=== PATIENT | male | born 1985 | race Caucasian/White ===

== ENCOUNTER 2024-09-26 09:35 | Emergency (ER) | payer SELFPAY ==
[2024-09-26 09:38] VITALS: BP 129/91; PULSE 94; TEMP 36.7; O2SAT 98; BMI 21.2
--- NOTE | 2024-09-26 09:42 | ECG_ITS ---
[facility] Test Date: 2024-09-26 Pat Name: NORMAN STARR Department: Room: - Gender: Male Cardiopulmonary Technologist: : [id number] Requested By: [id number] Order Number: [id number] Reading MD: YAZAN GUTIERREZ M.D. Measurements Intervals [place] Rate: 91 P: 90 CT: 124 QRS: 88 QRSD: 94 T: 83 QT: 370 QTc: 419 Interpretive Statements 1100 Sinus rhythm RSR' IN V1 OR V2, PROBABLY NORMAL VARIANT 9110 normal ECG Compared to ECG 09/17/2021 15:07:47 Sinus arrhythmia no longer present Electronically Signed On 09-27-2024 7:34:50 EDT by YAZAN GUTIERREZ M.D.
--- NOTE | 2024-09-26 09:43 | ED.MEDCLEAR1 ---
HPI - Medical Clearance General Chief complaint: Medical Clearance Stated complaint: SUICIDAL IDEATION, WELLNESS CHECK Time Seen by Provider: 09/26/24 09:42 Source: patient Mode of arrival: law enforcement History of Present Illness HPI Narrative: Patient is a 39-year-old male who is presenting to the ER today with chief complaint of psych clearance. Patient is making suicidal comments about not being here anymore, hanging himself, wanting to kill himself. Patient was talking on the phone to another individual at a gas station in [place]. Please officer brought patient in. Patient has been cooperative. Patient admits to doing methamphetamines, patient states he last use approximately 3 days ago to the police. Patient says that he has a history of bipolar, schizophrenia, he takes no medication. Patient denies taking any medication. Patient does admit to smoking methamphetamines. Patient said he lasted it 4 to 5 days ago to myself. Patient says he uses no cocaine use or any other use. Patient denies any type was drinks approximately 6-12 twisted teas a day. Patient smokes 1-1.5 packs of cigarettes a day. No other illicit drug use besides methamphetamines. Patient has no cardiac or lung history. Patient says he has been admitted to [facility] many years [facility], patient cannot recall why. Patient has no headache. Patient has multiple lomas on his forearms, patient states that he does not inject drugs, does not pop, he only smokes meth. Patient says that his family's family dog was attacking him of those lomas are bite lomas or scratches from a dog. Patient denies injecting IV drugs. Patient has no history of heart or cardiac disease. Patient currently has no abdominal pain nausea or vomiting. No urinary complaints. No bowel or bladder changes. I did ask patient if he is hallucinating recently was seeing or hearing things. Patient said yes, but he cannot give me any type of specifics what he was hearing or seeing, patient then told me he has bipolar and schizophrenia and that is sometimes normal for him. He is not compliant with medication. All systems are negative except as noted/marked. All systems reviewed and otherwise negative. Nurses note and vital signs reviewed and patient is not hypoxic. General: The patient appears well and in no apparent distress. Patient is resting comfortably on cart. Patient is not toxic, lethargic, or listless. Poor hygiene, patient smells of body odor Skin: Warm, dry, no pallor noted. There is no rash noted. No petechiae, purpura. Patient has multiple scratch lomas, healing sores to bilateral arms. Patient says they are from dog bites and scratches. No secondary signs of erythema, cellulitis, abscess, or secondary signs infection. He has no lomas around his neck from signs of self harm or trying to hurt or hang himself. Head: Normocephalic, atraumatic Eye: Normal conjunctiva, no drainage, EOMI. PERRL Ears, Nose, Mouth, and Throat: oral mucosa is moist. Nares patent. Mouth without vesicles. Cardiovascular: Regular Rate and Rhythm, no murmur, gallop, rub Respiratory: Patient is in no distress, no accessory muscle use, lungs are clear to auscultation, no wheezing, rales or rhonchi Back: non-tender, no CVA tenderness bilaterally to percussion. No CT LS midline pain GI: no tenderness to palpation, no masses appreciated. No rebound, guarding, or rigidity noted. No distention Musculoskeletal: Patient has full range of motion of all of the extremities, no motor, sensory, or focal neurological deficits Neurological: A&O x4, normal speech Psychiatric: Cooperative, patient is not suicidal, not homicidal. Patient does not appear to be psychotic. He currently is not hallucinating, delirious, he is cooperative. Patient does have good eye contact, patient answers questions appropriately. He does not appear to be under the influence of alcohol or drugs at this time. No signs of self-harm. Related Information Home Medications ?Medication ?Instructions ?Recorded ?Confirmed No Known Home Medications 09/26/24 09/26/24 Allergies Allergy/AdvReac Type Severity Reaction Status Date / Time Sulfa (Sulfonamide Allergy Severe Rash Verified 09/26/24 09:42 Antibiotics) PFSH PFSH Social History Little interest or pleasure in doing things: not at all Feeling down, depressed, or hopeless: not at all Exam Constitutional Vital Signs, click to edit/add: Last Vital Signs Temp 98.1 F 09/26/24 09:38 Pulse 94 H 09/26/24 09:38 Resp 18 09/26/24 09:38 BP 129/91 09/26/24 09:38 Pulse Ox 98 09/26/24 09:38 O2 Del Method Room Air 09/26/24 09:38 Course Vital Signs Vital signs: Vital Signs Temperature 98.1 F 09/26/24 09:38 Pulse Rate 94 H 09/26/24 09:38 Respiratory Rate 18 09/26/24 09:38 Blood Pressure 129/91 09/26/24 09:38 Pulse Oximetry 98 09/26/24 09:38 Oxygen Delivery Method Room Air 09/26/24 09:38 Temperature 98.1 F 09/26/24 09:38 Pulse Rate 94 H 09/26/24 09:38 Respiratory Rate 18 09/26/24 09:38 Blood Pressure 129/91 09/26/24 09:38 Pulse Oximetry 98 09/26/24 09:38 Oxygen Delivery Method Room Air 09/26/24 09:38 MDM - Medical Clearance MDM Narrative Medical decision making narrative: Patient seen and examined: Psych medical clearance along with electrolytes, secondary to daily alcohol use. Differential diagnosis includes but is not limited to: Alcohol dependence, tobacco abuse, illicit drug use, hallucinating, psychosis, delirium, medical noncompliance, bipolar, schizophrenia Diagnostics and management: Patient will have laboratory studies Relevant laboratory interpretation: Sodium 134, total bilirubin 1.1. Reevaluation: 1050 patient urinated, lunch has been ordered. Patient currently talking to [facility]. 1210 patient has been accepted to [address], [address] Lerner. Patient is being admitted for unspecified psychosis. Shared decision making: I discussed with the patient the necessary laboratory findings and radiological findings Social barriers to healthcare: There are no food insecurities, there is no issue with transportation, there are no insurance barriers. Disposition: I discussed with the patient. He is aware of the recommendation of admission by [facility]. Patient has been pleasant. He has been eating and drinking no difficulty. Patient will be admitted for unspecified psychosis. Patient is noncompliant with his medications as well. Patient will have transfer coming in approximately 1:30 PM. Critical care time 32 minutes exclusive from separate billable procedures that were performed. The following was considered in the determination of critical care but not limited to the level of medical decision making, intensive cardiac and/or respiratory monitoring, frequent vital sign monitoring, evaluation of laboratory studies, evaluation of radiographic studies, oxygen monitoring, and constant monitoring and speaking to family at bedside Lab Data Attestation: I reviewed the patient's lab results. Labs: Lab Results 09/26/24 09/26/24 Range/Units 09:52 10:45 WBC 9.8 (4.0-11.0) 10^3/uL RBC 4.79 (4.70-6.10) 10^6/uL Hgb 15.2 (14.0-18.0) g/dL Hct 42.2 (42.0-54.0) % MCV 88.1 (80.0-94.0) fL MCH 31.7 (25.9-34.0) pg MCHC 36.0 H (29.9-35.2) g/dL RDW 12.2 (11.0-15.0) % Plt Count 275 (150-450) 10^3/uL MPV 9.3 L (9.5-13.5) fL Neut % (Auto) 79.3 H (43.0-75.0) % Lymph % (Auto) 12.3 L (20.5-60.0) % [place] % (Auto) 7.5 (1.7-12.0) % Eos % (Auto) 0.4 L (0.9-7.0) % Baso % (Auto) 0.3 (0.2-2.0) % Neut # (Auto) 7.8 H (1.4-6.5) 10^3/uL Lymph # (Auto) 1.2 (1.2-3.8) 10^3/uL [place] # (Auto) 0.7 (0.3-0.8) 10^3/uL Eos # (Auto) 0.0 (0.0-0.7) 10^3/uL Baso # (Auto) 0.0 (0.0-0.1) 10^3/uL Abs Immat Gran (auto) 0.02 (0.00-0.03) 10^3/uL Imm/Tot Granulo (auto) 0.2 (0.0-0.5) % Sodium 134 L (136-145) mmol/L Potassium 3.6 (3.5-5.1) mmol/L Chloride 98 (98-107) mmol/L Carbon Dioxide 24.9 (21.0-32.0) mmol/L Anion Gap 14.7 BUN 6.0 L (7.0-18.0) mg/dL Creatinine 0.79 (0.70-1.30) mg/dL Est GFR ( Amer) >60 (>=60 mL/min/1.73m^2) Est GFR (Non-Af Amer) >60 (>=60 mL/min/1.73m^2) BUN/Creatinine Ratio 7.6 Glucose 130 H (74-106) mg/dL Calcium 9.4 (8.5-10.1) mg/dL Magnesium 1.9 (1.8-2.4) mg/dL Total Bilirubin 1.1 H (0.2-1.0) mg/dL AST 16 (15-37) U/L ALT 22 (16-63) U/L Alkaline Phosphatase 98 (46-116) U/L Total Creatine Kinase 148 (39-308) U/L Total Protein 7.5 (6.4-8.2) g/dL Albumin 4.1 (3.4-5.0) g/dL Globulin 3.4 g/dL Albumin/Globulin Ratio 1.2 Urine Color Lt. yellow (YELLOW) Urine Clarity Clear (CLEAR) Urine pH 6.0 (5.0-9.0) Ur Specific [place] <=1.005 A (1.005-1.025) Urine Protein Negative (NEG/TRACE) mg/dL Urine Glucose (UA) Negative (NEGATIVE) mg/dL Urine Ketones Negative (NEGATIVE) mg/dL Urine Occult Blood Negative (NEGATIVE) Urine Nitrite Negative (NEGATIVE) Urine Bilirubin Negative (NEGATIVE) Urine Urobilinogen 0.2 (0.2-1.0) EU/dL Ur Leukocyte Esterase Negative (NEGATIVE) Urine RBC None seen (0-2) #/HPF Urine WBC 0-2 A (NONE SEEN) #/HPF Ur Squamous Epith Cells Rare (NONE/RARE) #/LPF Urine Crystals None seen (None Seen) #/HPF Urine Bacteria None seen (NONE SEEN) #/HPF Urine Casts None seen (NONE SEEN) #/LPF Urine Mucus None seen (NONE SEEN) Salicylates <2.8 (<=19.9) mg/dL Urine Opiates Screen Negative (NEGATIVE) Ur Buprenorphine Scrn Negative (NEGATIVE) Ur Oxycodone Screen Negative (NEGATIVE) Urine Methadone Screen Negative (NEGATIVE) Acetaminophen <2.0 L (10.0-30.0) ug/mL Ur Barbiturates Screen Negative (NEGATIVE) U Tricyclic Antidepress Negative (NEGATIVE) Ur Phencyclidine Scrn Negative (NEGATIVE) Ur Amphetamines Screen Positive A (NEGATIVE) U Methamphetamines Scrn Positive A (NEGATIVE) U Benzodiazepines Scrn Negative (NEGATIVE) Urine Cocaine Screen Negative (NEGATIVE) U Cannabinoids Screen Negative (NEGATIVE) Ethanol Quant <3 mg/dL ECG Data Attestation: I personally reviewed and interpreted this ECG as follows: (EKG interpretation. Normal sinus rhythm at 91 beats a minute. Normal axis deviation. Artifact seen. QTc of 419) Discharge Plan Discharge Chief Complaint: Medical Clearance Clinical Impression: Medical clearance for incarceration, Tobacco abuse, Alcohol dependence, Medically noncompliant Patient Disposition: [facility] Time of Disposition Decision: 12:10 Discharge Location: [facility] Discharge location: [address] Condition: Fair
[2024-09-26 09:57] LABS: Basophils Percent Auto 0.3 % (0.2-2.0); Eosinophils Percent Auto 0.4 % (0.9-7.0); Hematocrit 42.2 % (42.0-54.0); Hemoglobin 15.2 g/dL (14.0-18.0); Immature Granulocytes Abs Auto 0.02 10^3/uL (0.00-0.03); Immature Granulocytes Pct Auto 0.2 % (0.0-0.5); Lymphocytes Absolute Auto 1.2 10^3/uL (1.2-3.8); Lymphocytes Percent Auto 12.3 % (20.5-60.0); Mean Corpuscular Hemoglobin 31.7 pg (25.9-34.0); Mean Corpuscular Volume 88.1 fL (80.0-94.0); Mean Platelet Volume 9.3 fL (9.5-13.5); Monocytes Absolute Auto 0.7 10^3/uL (0.3-0.8); Monocytes Percent Auto 7.5 % (1.7-12.0); Neutrophils Absolute Auto 7.8 10^3/uL (1.4-6.5); Neutrophils Percent Auto 79.3 % (43.0-75.0); Platelet Count 275 10^3/uL (150-450); Red Blood Count 4.79 10^6/uL (4.70-6.10); Red Cell Distribution Width 12.2 % (11.0-15.0); White Blood Count 9.8 10^3/uL (4.0-11.0)
[2024-09-26 10:17] LABS: Alanine Aminotransferase 22 U/L (16-63); Albumin Globulin Ratio 1.2; Albumin Level 4.1 g/dL (3.4-5.0); Alkaline Phosphatase 98 U/L (46-116); Anion Gap 14.7; Aspartate Amino Transferase 16 U/L (15-37); BUN Creatinine Ratio 7.6; Bilirubin Total 1.1 mg/dL (0.2-1.0); Calcium 9.4 mg/dL (8.5-10.1); Carbon Dioxide 24.9 mmol/L (21.0-32.0); Chloride 98 mmol/L (98-107); Estimated GFR (African America >60 (>=60 mL/min/1.73m^2); Estimated GFR (Non-African Ame >60 (>=60 mL/min/1.73m^2); Globulin 3.4 g/dL; Glucose 130 mg/dL (74-106); Potassium 3.6 mmol/L (3.5-5.1); Salicylate <2.8 mg/dL (<=19.9); Sodium 134 mmol/L (136-145); Total Protein 7.5 g/dL (6.4-8.2)
[2024-09-26 10:22] LABS: Acetaminophen <2.0 ug/mL (10.0-30.0)
[2024-09-26 10:23] LABS: Creatine Kinase 148 U/L (39-308); Magnesium 1.9 mg/dL (1.8-2.4)
[2024-09-26 10:33] LABS: Ethanol <3 mg/dL
[2024-09-26 10:58] LABS: Bilirubin Urine NEGATIVE (NEGATIVE); Blood Urine NEGATIVE (NEGATIVE); Clarity Urine CLEAR (CLEAR); Color Urine LT. YELLOW (YELLOW); Glucose Urine UA NEGATIVE (NEGATIVE); Ketones Urine NEGATIVE (NEGATIVE); Leukocyte Esterase Urine NEGATIVE (NEGATIVE); Nitrite Urine NEGATIVE (NEGATIVE); Protein Urine NEGATIVE (NEG/TRACE); Specific Gravity Urine <=1.005 (1.005-1.025); Urobilinogen Urine 0.2 EU/dL (0.2-1.0)
[2024-09-26 11:06] LABS: Amphetamine Screen Urine POSITIVE (NEGATIVE); Barbiturates Screen Urine NEGATIVE (NEGATIVE); Benzodiazepines Screen Urine NEGATIVE (NEGATIVE); Buprenorphine Screen Urine NEGATIVE (NEGATIVE); Cannabinoid Screen Urine NEGATIVE (NEGATIVE); Cocaine Screen Urine NEGATIVE (NEGATIVE); Methadone Screen Urine NEGATIVE (NEGATIVE); Methamphetamines Screen Urine POSITIVE (NEGATIVE); Opiate Screen Urine NEGATIVE (NEGATIVE); Oxycodone Screen Urine NEGATIVE (NEGATIVE); Phencyclidine Screen Urine NEGATIVE (NEGATIVE); Tricyclic Antidepressant Urine NEGATIVE (NEGATIVE)
[2024-09-26 11:08] LABS: Bacteria Urine NONE SEEN #/HPF (NONE SEEN); Crystals Seen? None Seen #/HPF (None Seen); Mucus Urine NONE SEEN (NONE SEEN); RBC Urine NONE SEEN #/HPF (0-2); Squamous Epithelial Cell Urine RARE #/LPF (NONE/RARE); WBC Urine 0-2 #/HPF (NONE SEEN)
[2024-09-26 11:09] LABS: Cast Seen? NONE SEEN #/LPF (NONE SEEN)
== END 2024-09-26 12:40 | disposition short-term general hospital (02) ==
PROVIDERS: Emergency Provider Emergency Medicine
DX: Z02.89 Encounter for other administrative examinations (principal); F29 Unspecified psychosis not due to a substance or known physiological condition; R45.851 Suicidal ideations; F31.9 Bipolar disorder, unspecified; F20.9 Schizophrenia, unspecified; F17.210 Nicotine dependence, cigarettes, uncomplicated; T50.906A Underdosing of unspecified drugs, medicaments and biological substances, initial encounter; Z91.148 Patient's other noncompliance with medication regimen for other reason; F10.20 Alcohol dependence, uncomplicated; Y90.0 Blood alcohol level of less than 20 mg/100 ml
CPT/HCPCS: 36415; 80053; 80179; 80307; 80320; 80329; 81001; 82550; 83735; 85025; 93005; 99285